=== PATIENT | male | born 1960 | race Asian ===

== ENCOUNTER 2017-04-24 14:52 | Emergency (ER) | payer MEDICARE ==
[~2017-04-24] VITALS: Ht 167.6 cm; Wt 77.0 kg
[~2017-04-24 14:52] MED LIST: ALBU8.5H8 INH; ALPR0.25 PO; ALPR0.254 PO; AMLO2.5T2 PO; AMLO5TAB2 PO; AMOX-291 PO; ARIP5TAB13 PO; ASPI-621 PO; ATOR80TA PO; CARV-39 PO; CARV12.52 PO; CARV3.1212 PO; CEFD300C37 PO; CLON-275 PO; CLOP75TA PO; DICL100G19 TP; DULO30CA2 PO; FAMO20TA37 PO; FLUT16SP INH; FURO20TA3 PO; GABA300C10 PO; GABA800T2 PO; GLIP-33 PO; HYDR-3240 PO; HYDR-3241 PO; INDO25CA PO; ISOS30TA PO; ISOS30TA8 PO; LISI-167 PO; LISI5TAB7 PO; LOVA40TA2 PO; METF10002 PO; METF850T2 PO; METH4TAB6 PO; MORP-52 PO; MORP15TA3 PO; NITR0.4T SL; OXYC10TA6 PO; OXYC5TAB3 PO; PANT20TA3 PO; POTA10CA PO; POTA10TA6 PO; REPA1TAB6 PO; SERT50TA5 PO; TICA90TA PO; ZOLP5TAB6 PO; will bring list
[2017-04-24 14:54] VITALS: BP 155/96
[2017-04-24] MEDS ORDERED: METH5TAB2 PO (15:18)
[2017-04-24] MEDS ORDERED: HYDR-883 PO (15:18)
== END 2017-04-24 16:10 | disposition home or self-care (01) ==
LOC: ED 16:06
DX: R22.2 Localized swelling, mass and lump, trunk (principal); E11.9 Type 2 diabetes mellitus without complications; E78.5 Hyperlipidemia, unspecified; I25.10 Atherosclerotic heart disease of native coronary artery without angina pectoris; I10 Essential (primary) hypertension; I25.2 Old myocardial infarction; Z87.01 Personal history of pneumonia (recurrent); Z95.1 Presence of aortocoronary bypass graft; I50.20 Unspecified systolic (congestive) heart failure
CPT/HCPCS: 76604; 99284

== ENCOUNTER 2017-05-08 08:53 | Emergency (ER) | payer MEDICARE ==
[~2017-05-08] VITALS: Ht 167.6 cm; Wt 75.8 kg
[~2017-05-08 08:53] MED LIST changes: +HYDR-883 PO; +METH5TAB2 PO
[2017-05-08] MEDS ORDERED: SODIUM CHLORIDE FLUSH 10ML SYR IVF ONE (09:30)
[2017-05-08] MEDS ORDERED: ONDANSETRON 2MG/ML, 2ML IVPush ONE ×2 (09:30→10:30)
[2017-05-08] MEDS ORDERED: ASPIRIN 81 MG TABLET CHEW PO ONE (09:30)
[2017-05-08 09:54] LABS: HEMATOCRIT 48.9 % (39.2-51.8); HEMOGLOBIN 16.6 g/dL (13.7-18.0); WHITE BLOOD COUNT 12.8 x10^3/uL (3.4-10)
[2017-05-08] MEDS ORDERED: MORPHINE SULFATE 4 MG/ML, 1ML ONE ×2 (09:55→10:41)
[2017-05-08] MEDS ORDERED: ASPIRIN 81 MG TABLET CHEW ONE (09:55)
[2017-05-08] MEDS ORDERED: ONDANSETRON 2MG/ML, 2ML ONE (09:56)
[2017-05-08] MEDS: MORPHINE SULFATE 4 MG/ML, 1ML IVPush PRN ×2 (09:57→11:09)
[2017-05-08 10:08] LABS: BLOOD UREA NITROGEN 15 mg/dL (7-18)
[2017-05-08 10:13] LABS: IS PT STATUS REG ER OR PRE ER? YES
[2017-05-08] MEDS ORDERED: MAALOX/HYOSCYAMINE/LIDOCAINE 45 ML BTL PO ONE (10:30)
[2017-05-08] MEDS ORDERED: MAALOX/HYOSCYAMINE/LIDOCAINE 45 ML BTL ONE (10:41)
[2017-05-08 11:59] VITALS: BP 125/82
== END 2017-05-08 12:01 | disposition home or self-care (01) ==
LOC: ED 11:45
DX: K29.70 Gastritis, unspecified, without bleeding (principal); R07.89 Other chest pain; I10 Essential (primary) hypertension; E11.9 Type 2 diabetes mellitus without complications; E78.5 Hyperlipidemia, unspecified; I25.10 Atherosclerotic heart disease of native coronary artery without angina pectoris
CPT/HCPCS: 36415; 71010; 76700; 80048; 80076; 82040; 83690; 83880; 84484; 85025; 93005; 96374; 96375; 96376; 99285; J2405

== ENCOUNTER 2017-10-21 17:21 | Emergency (ER) | payer MEDICARE ==
[~2017-10-21] VITALS: Ht 167.6 cm; Wt 72.7 kg
[2017-10-21] MEDS ORDERED: CYCLOBENZAPRINE 10 MG TABLET ONE (17:58)
[2017-10-21] MEDS ORDERED: MORPHINE SULFATE 4 MG/ML, 1ML ONE (17:58)
[2017-10-21] MEDS ORDERED: MORPHINE SULFATE 4 MG/ML, 1ML IVPush ONE (18:00)
[2017-10-21] MEDS ORDERED: SODIUM CHLORIDE FLUSH 10ML SYR IVF ONE (18:00)
[2017-10-21] MEDS ORDERED: CYCLOBENZAPRINE 10 MG TABLET PO ONE (18:00)
[2017-10-21] MEDS ORDERED: SODIUM CHLORIDE 0.9% 1,000ML IV ONE (18:00)
[2017-10-21 18:04] LABS: BASOPHILS # (AUTO) 0.11 x10^3/uL (0-0.1); BASOPHILS % (AUTO) 1 % (0-1); EOSINOPHILS # (AUTO) 0.44 x10^3/uL (0-0.4); EOSINOPHILS % (AUTO) 3 % (1-7); LYMPHOCYTES # (AUTO) 3.32 x10^3/uL (1-3.4); LYMPHOCYTES % (AUTO) 25 % (22-44); MD NO; MEAN CORPUSCULAR HEMOGLOBIN 29.8 pg (27.5-34.5); MEAN CORPUSCULAR HGB CONC 33.7 g/dL (33.2-36.2); MEAN CORPUSCULAR VOLUME 88.5 fL (81-97); MEAN PLATELET VOLUME 9.2 fL (7.4-10.4); MONOCYTES # (AUTO) 0.92 x10^3/uL (0.2-0.8); MONOCYTES % (AUTO) 7 % (2-9); NEUTROPHILS # (AUTO) 8.67 x10^3/uL (1.8-6.8); NEUTROPHILS % (AUTO) 65 % (42-75); PLATELET COUNT 221 x10^3/uL (130-400); RED BLOOD COUNT 5.46 x10^6/uL (4.38-5.82); RED CELL DISTRIBUTION WIDTH 13.2 % (9.4-14.8)
[2017-10-21] MEDS ORDERED: ALBU8.5H8 INH (18:09)
[2017-10-21] MEDS ORDERED: GLIM2TAB2 PO (18:10)
[2017-10-21] MEDS ORDERED: ATOR-2 PO (18:12)
[2017-10-21] MEDS ORDERED: MECL25TA4 PO (18:12)
[2017-10-21] MEDS ORDERED: CARV-39 PO (18:13)
[2017-10-21 18:15] LABS: ALANINE AMINOTRANSFERASE 50 U/L (12-78); ALBUMIN 3.8 g/dL (3.4-5.0); ANION GAP 5 mmol/L (5-15); CALCIUM 8.5 mg/dL (8.5-10.1); CHLORIDE 106 mmol/L (98-107); CREATININE 1.18 mg/dL (0.7-1.3)
[2017-10-21 18:17] LABS: ALKALINE PHOSPHATASE 105 U/L (45-117); BILIRUBIN,TOTAL 0.3 mg/dL (0.2-1.0); TOTAL PROTEIN 7.1 g/dL (6.4-8.2)
[2017-10-21] MEDS ORDERED: HYDR-3307 PO (18:23)
[2017-10-21] MEDS ORDERED: LISI2.5T PO (18:24)
[2017-10-21] MEDS ORDERED: FAMO20TA7 PO (18:27)
[2017-10-21] MEDS ORDERED: HYDR12.53 PO (18:28)
[2017-10-21 18:59] LABS: MICROSCOPIC NOT IND
[2017-10-21 19:21] LABS: CULTURE INDICATED? NO
[2017-10-21 20:02] VITALS: BP 131/90
== END 2017-10-21 20:04 | disposition home or self-care (01) ==
LOC: ED 19:54
DX: S39.012A Strain of muscle, fascia and tendon of lower back, initial encounter (principal); I50.20 Unspecified systolic (congestive) heart failure; E11.9 Type 2 diabetes mellitus without complications; E78.5 Hyperlipidemia, unspecified; I25.2 Old myocardial infarction; I25.810 Atherosclerosis of coronary artery bypass graft(s) without angina pectoris; Z95.1 Presence of aortocoronary bypass graft; X58.XXXA Exposure to other specified factors, initial encounter; Y93.89 Activity, other specified; Y92.89 Other specified places as the place of occurrence of the external cause; Y99.8 Other external cause status; I11.0 Hypertensive heart disease with heart failure
CPT/HCPCS: 36415; 74176; 80053; 81003; 83690; 85025; 96361; 96374; 99285; J7030

== ENCOUNTER → 2018-09-14 | Outpatient (CLI) | payer MEDICARE ==
[~2018-09-14] MED LIST changes: +AMLO-150 PO; -AMLO5TAB2 PO; -ASPI-621 PO; +ASPI81TA45 PO; +ATOR-2 PO; +CARV25TA12 PO; +DIPH25CA61 PO; +DIVA500T4 PO; +FAMO20TA7 PO; +FINA5TAB4 PO; +GABA-827 PO; -GABA800T2 PO; +GABA800T5 PO; +GLIM2TAB2 PO; +GLIP5TAB22 PO; +HYDR-3307 PO; +HYDR-3652 PO; -HYDR-883 PO; +HYDR12.517 PO; -INDO25CA PO; +INDO25CA5 PO; +LISI2.5T PO; +MECL-85 PO; +MECL25TA4 PO; +METF500T PO; +METF850T10 PO; -METF850T2 PO; +OMNIPAQUE 350 MG/ML, 150 ML BOTTLE ONE; +POTA10TA5 PO; +QUET100T PO; +QUET25TA7 PO; +SERT50TA28 PO; -SERT50TA5 PO; +SULF-169 PO; +TAMS-11 PO; +TRIA15CR61 TP
== END | disposition home or self-care (01) ==
LOC: CFH 11:42
PROVIDERS: ATTEND Student in an Organized Health Care Education/Training Program
DX: N41.2 Abscess of prostate (principal); B96.20 Unspecified Escherichia coli [E. coli] as the cause of diseases classified elsewhere; N40.1 Benign prostatic hyperplasia with lower urinary tract symptoms
CPT/HCPCS: 74178; 82565; Q9967

== ENCOUNTER → 2018-09-19 | Outpatient (CLI) | payer MEDICAID, MEDICARE ==
[~2018-09-19] MED LIST changes: -OMNIPAQUE 350 MG/ML, 150 ML BOTTLE ONE
== END | disposition home or self-care (01) ==
LOC: CVU 15:28
PROVIDERS: ATTEND Internal Medicine Cardiovascular Disease
DX: Z01.810 Encounter for preprocedural cardiovascular examination (principal); I34.0 Nonrheumatic mitral (valve) insufficiency; I51.7 Cardiomegaly; I25.10 Atherosclerotic heart disease of native coronary artery without angina pectoris
CPT/HCPCS: 0399T; 93306

== ENCOUNTER → 2018-10-24 | Outpatient (CLI) | payer MEDICARE ==
[~2018-10-24] MED LIST changes: -FLUT16SP INH; +FLUT16SP24 INH; -NITR0.4T SL; +NITR0.4T41 SL
[2018-10-24 16:17] LABS: ALANINE AMINOTRANSFERASE 38 U/L (12-78); ANION GAP 5 mmol/L (5-15); CALCIUM 8.7 mg/dL (8.5-10.1); CHLORIDE 106 mmol/L (98-107)
[2018-10-24 16:20] LABS: ALKALINE PHOSPHATASE 86 U/L (45-117); BILIRUBIN,TOTAL 0.6 mg/dL (0.2-1.0); CREATININE 1.31 mg/dL (0.7-1.3); TOTAL PROTEIN 7.2 g/dL (6.4-8.2)
== END | disposition home or self-care (01) ==
LOC: STAR 14:52
PROVIDERS: ATTEND Orthopaedic Surgery
DX: Z01.818 Encounter for other preprocedural examination (principal); M75.121 Complete rotator cuff tear or rupture of right shoulder, not specified as traumatic; M75.41 Impingement syndrome of right shoulder; M19.011 Primary osteoarthritis, right shoulder
CPT/HCPCS: 36415; 80053; 93005

== ENCOUNTER 2018-10-31 06:08 | Day surgery (SDC) | payer MEDICARE ==
[~2018-10-31] VITALS: Ht 167.6 cm; Wt 73.9 kg
[2018-10-31] MEDS ORDERED: LACTATED RINGERS 1,000 ML IV SCH (07:03)
[2018-10-31] MEDS ORDERED: BUPIVACAINE/PF 0.25% ONE (07:07)
[2018-10-31] MEDS ORDERED: EPINEPHRINE 1 MG/ML, 1ML ONE (07:07)
[2018-10-31 07:09] VITALS: BP 122/82
[2018-10-31] MEDS ORDERED: MIDAZOLAM 1 MG/ML, 2ML ONE (07:38)
[2018-10-31] MEDS ORDERED: FENTANYL PF 100 MCG/2ML ONE (07:38)
[2018-10-31] MEDS ORDERED: BUPIVACAINE/PF-EPI 0.25% 1:200K INFIL ONE (07:52)
[2018-10-31] MEDS ORDERED: PHENYLEPHRINE 10 MG/ML ONE (08:24)
[2018-10-31] MEDS ORDERED: EPHEDRINE 50 MG/ML, 1ML ONE (08:24)
[2018-10-31] MEDS ORDERED: FENTANYL PF 100 MCG/2ML IV PRN (09:30)
[2018-10-31] MEDS ORDERED: ALBUTEROL SULFATE 2.5 MG/3 ML NPPB PRN (09:30)
[2018-10-31] MEDS ORDERED: LABETALOL 5MG/ML, 20ML IV PRN (09:30)
[2018-10-31] MEDS ORDERED: OXYcodone 5 MG/5 ML ORAL.SOL UDC PO PRN (09:30)
[2018-10-31] MEDS ORDERED: PROMETHAZINE 25 MG/ML, 1ML IV PRN (09:30)
[2018-10-31] MEDS ORDERED: KETOROLAC 30 MG/1 ML IV PRN (09:30)
[2018-10-31] MEDS ORDERED: MEPERIDINE/PF 25MG/0.5ML IVPush PRN (09:30)
[2018-10-31] MEDS ORDERED: DIAZEPAM 5 MG/ML, 2ML IVPush PRN (09:30)
[2018-10-31] MEDS ORDERED: hydrALAzine 20 MG/ML, 1ML IV PRN (09:30)
[2018-10-31] MEDS ORDERED: ACETAMINOPHEN 325 MG TABLET PO PRN (09:30)
[2018-10-31] MEDS ORDERED: HYDROmorphone 2 MG/ML, 1ML IVPush PRN (09:30)
[2018-10-31] MEDS ORDERED: DEXAMETHASONE 4 MG/ML, 1ML ONE (10:20)
[2018-10-31] MEDS ORDERED: PROPOFOL 10 MG/ML, 20ML ONE (10:20)
[2018-10-31] MEDS ORDERED: ROCURONIUM 10MG/ML,5ML ONE (10:20)
[2018-10-31] MEDS ORDERED: SUCCINYLCHOLINE 20 MG/ML, 10ML ONE (10:20)
[2018-10-31] MEDS ORDERED: GLYCOPYRROLATE 0.2MG/1ML, 5ML ONE (10:20)
[2018-10-31] MEDS ORDERED: NEOSTIGMINE 1 MG/ML, 10ML ONE (10:20)
[2018-10-31] MEDS ORDERED: ONDANSETRON 2MG/ML, 2ML ONE (10:20)
[2018-10-31] MEDS ORDERED: CEFAZOLIN 1,000 MG ONE (10:20)
== END 2018-10-31 12:17 | disposition home or self-care (01) ==
LOC: OUT 06:08
PROVIDERS: ATTEND Orthopaedic Surgery
DX: S46.011A Strain of muscle(s) and tendon(s) of the rotator cuff of right shoulder, initial encounter (principal); S46.111A Strain of muscle, fascia and tendon of long head of biceps, right arm, initial encounter; S43.431A Superior glenoid labrum lesion of right shoulder, initial encounter; M19.011 Primary osteoarthritis, right shoulder; M75.01 Adhesive capsulitis of right shoulder; M25.811 Other specified joint disorders, right shoulder; I25.10 Atherosclerotic heart disease of native coronary artery without angina pectoris; E11.22 Type 2 diabetes mellitus with diabetic chronic kidney disease; I12.9 Hypertensive chronic kidney disease with stage 1 through stage 4 chronic kidney disease, or unspecified chronic kidney disease; N18.9 Chronic kidney disease, unspecified; I25.2 Old myocardial infarction; E78.5 Hyperlipidemia, unspecified; F41.9 Anxiety disorder, unspecified; F32.9 Major depressive disorder, single episode, unspecified; Z79.84 Long term (current) use of oral hypoglycemic drugs; Z79.82 Long term (current) use of aspirin; Z79.891 Long term (current) use of opiate analgesic; Z79.02 Long term (current) use of antithrombotics/antiplatelets; Z79.899 Other long term (current) drug therapy; Z88.8 Allergy status to other drugs, medicaments and biological substances; Z95.1 Presence of aortocoronary bypass graft; W00.2XXA Other fall from one level to another due to ice and snow, initial encounter; Y93.89 Activity, other specified; Y92.89 Other specified places as the place of occurrence of the external cause; Y99.8 Other external cause status
CPT/HCPCS: 29823; 29824; 29826; 29827; 29828; 64415; 82962; C1713; J0171; J0330; J0690; J1100; J2250; J2370; J2405; J2704; J2710; J3010; J3490; J7120

== ENCOUNTER 2018-11-04 13:58 | Emergency (ER) | payer MEDICARE, MEDICAID ==
[~2018-11-04] VITALS: Ht 167.6 cm; Wt 78.0 kg
[2018-11-04] MEDS ORDERED: MORPHINE SULFATE 4 MG/ML, 1ML IVPush PRN (14:30)
[2018-11-04 14:42] LABS: BASOPHILS # (AUTO) 0.05 x10^3/uL (0-0.1); BASOPHILS % (AUTO) 1 % (0-1); EOSINOPHILS # (AUTO) 0.33 x10^3/uL (0-0.4); EOSINOPHILS % (AUTO) 4 % (1-7); LYMPHOCYTES # (AUTO) 2.81 x10^3/uL (1-3.4); LYMPHOCYTES % (AUTO) 33 % (22-44); MD NO; MEAN CORPUSCULAR HEMOGLOBIN 30.3 pg (27.5-34.5); MEAN CORPUSCULAR HGB CONC 33.4 g/dL (33.2-36.2); MEAN CORPUSCULAR VOLUME 90.6 fL (81-97); MEAN PLATELET VOLUME 8.5 fL (7.4-10.4); MONOCYTES # (AUTO) 0.76 x10^3/uL (0.2-0.8); MONOCYTES % (AUTO) 9 % (2-9); NEUTROPHILS # (AUTO) 4.58 x10^3/uL (1.8-6.8); NEUTROPHILS % (AUTO) 54 % (42-75); PLATELET COUNT 253 x10^3/uL (130-400); RED BLOOD COUNT 4.32 x10^6/uL (4.38-5.82); RED CELL DISTRIBUTION WIDTH 13.1 % (9.4-14.8)
[2018-11-04] MEDS ORDERED: MORPHINE SULFATE 4 MG/ML, 1ML ONE (14:50)
[2018-11-04 14:53] LABS: ALBUMIN 3.5 g/dL (3.4-5.0); ANION GAP 5 mmol/L (5-15); CALCIUM 9.1 mg/dL (8.5-10.1); CHLORIDE 103 mmol/L (98-107); CREATININE 1.02 mg/dL (0.7-1.3)
[2018-11-04 14:57] LABS: TROPONIN I < 0.015 ng/mL (0.000-0.045)
[2018-11-04 16:25] VITALS: BP 116/80
== END 2018-11-04 16:29 | disposition home or self-care (01) ==
LOC: ED 14:30
DX: M25.511 Pain in right shoulder (principal); M79.631 Pain in right forearm; M79.89 Other specified soft tissue disorders; F32.9 Major depressive disorder, single episode, unspecified; F41.9 Anxiety disorder, unspecified; E11.9 Type 2 diabetes mellitus without complications; E78.5 Hyperlipidemia, unspecified; I11.9 Hypertensive heart disease without heart failure; I25.10 Atherosclerotic heart disease of native coronary artery without angina pectoris; I25.2 Old myocardial infarction; F17.200 Nicotine dependence, unspecified, uncomplicated; Z87.01 Personal history of pneumonia (recurrent)
CPT/HCPCS: 36415; 71045; 80048; 82040; 84484; 85025; 93005; 93971; 96374; 99284; J2270

== ENCOUNTER 2018-12-18 19:26 | Emergency (ER) | payer MEDICAID, MEDICARE ==
[~2018-12-18] VITALS: Ht 167.6 cm; Wt 76.9 kg
[~2018-12-18 19:26] MED LIST changes: -HYDR-3307 PO; +HYDR-36 PO; +INDO25CA22 PO; -INDO25CA5 PO; +MORP-29 PO; -MORP15TA3 PO
--- NOTE | 2018-12-18 20:15 | NUR ---
pt to room from lobby
[2018-12-18 21:37] VITALS: BP 105/77
== END 2018-12-18 21:40 | disposition home or self-care (01) ==
LOC: ED 21:15
DX: R51 Headache (principal); G89.29 Other chronic pain; I25.2 Old myocardial infarction; I25.10 Atherosclerotic heart disease of native coronary artery without angina pectoris; I11.9 Hypertensive heart disease without heart failure; F31.9 Bipolar disorder, unspecified; F41.9 Anxiety disorder, unspecified; E11.9 Type 2 diabetes mellitus without complications; E78.5 Hyperlipidemia, unspecified; Z95.1 Presence of aortocoronary bypass graft; F17.200 Nicotine dependence, unspecified, uncomplicated
CPT/HCPCS: 70450; 99284

== ENCOUNTER 2019-03-28 18:48 | Emergency (ER) | payer MEDICARE ==
[~2019-03-28] VITALS: Ht 167.6 cm; Wt 79.6 kg
[~2019-03-28 18:48] MED LIST changes: -GLIM2TAB2 PO; +GLIM2TAB3 PO
[2019-03-28] MEDS ORDERED: HYDROmorphone 1 MG/ML, 1ML INJ IM ONE (20:00)
[2019-03-28] MEDS ORDERED: DIAZEPAM 5 MG TABLET PO ONE (20:00)
[2019-03-28] MEDS ORDERED: DIAZEPAM 5 MG TABLET ONE (20:24)
[2019-03-28] MEDS ORDERED: HYDROmorphone 2 MG/ML, 1ML ONE (20:24)
[2019-03-28 20:31] VITALS: BP 128/78
== END 2019-03-28 20:35 | disposition home or self-care (01) ==
LOC: ED 20:15
DX: S39.012A Strain of muscle, fascia and tendon of lower back, initial encounter (principal); M54.41 Lumbago with sciatica, right side; E11.9 Type 2 diabetes mellitus without complications; E78.5 Hyperlipidemia, unspecified; I10 Essential (primary) hypertension; I25.2 Old myocardial infarction; F31.9 Bipolar disorder, unspecified; I25.10 Atherosclerotic heart disease of native coronary artery without angina pectoris; F41.1 Generalized anxiety disorder; Z87.01 Personal history of pneumonia (recurrent); Z95.1 Presence of aortocoronary bypass graft; X58.XXXA Exposure to other specified factors, initial encounter; Y93.89 Activity, other specified; Y92.89 Other specified places as the place of occurrence of the external cause; Y99.8 Other external cause status
CPT/HCPCS: 72110; 96372; 99283; J1170; J7512

== ENCOUNTER 2019-04-13 10:11 | Emergency (ER) | payer MEDICARE ==
[~2019-04-13] VITALS: Ht 167.6 cm; Wt 76.7 kg
[2019-04-13 10:14] VITALS: BP 93/53
[2019-04-13] MEDS ORDERED: LIDOCAINE-MPF 1%, 5ML ONE ×2 (10:40→13:43)
[2019-04-13] MEDS ORDERED: ONDANSETRON 2MG/ML, 2ML ONE (10:54)
[2019-04-13] MEDS ORDERED: MORPHINE SULFATE 4 MG/ML, 1ML ONE ×2 (10:55→12:09)
[2019-04-13] MEDS ORDERED: SODIUM CHLORIDE 0.9% 1,000ML IVBOLUS ONE (11:00)
[2019-04-13] MEDS ORDERED: SODIUM CHLORIDE FLUSH 10ML SYR IVF ONE (11:00)
[2019-04-13] MEDS ORDERED: ONDANSETRON 2MG/ML, 2ML IVPush ONE (11:00)
[2019-04-13] MEDS ORDERED: LIDOCAINE 1%, 10ML INFIL ONE (11:00)
[2019-04-13 11:38] LABS: BASOPHILS # (AUTO) 0.07 x10^3/uL (0-0.1); BASOPHILS % (AUTO) 1 % (0-1); EOSINOPHILS # (AUTO) 0.24 x10^3/uL (0-0.4); EOSINOPHILS % (AUTO) 2 % (1-7); LYMPHOCYTES # (AUTO) 2.03 x10^3/uL (1-3.4); LYMPHOCYTES % (AUTO) 16 % (22-44); MD NO; MEAN CORPUSCULAR HEMOGLOBIN 30.9 pg (27.5-34.5); MEAN CORPUSCULAR HGB CONC 33.7 g/dL (33.2-36.2); MEAN CORPUSCULAR VOLUME 91.7 fL (81-97); MEAN PLATELET VOLUME 8.7 fL (7.4-10.4); MONOCYTES # (AUTO) 0.69 x10^3/uL (0.2-0.8); MONOCYTES % (AUTO) 5 % (2-9); NEUTROPHILS # (AUTO) 9.59 x10^3/uL (1.8-6.8); NEUTROPHILS % (AUTO) 76 % (42-75); PLATELET COUNT 241 x10^3/uL (130-400); RED BLOOD COUNT 4.78 x10^6/uL (4.38-5.82); RED CELL DISTRIBUTION WIDTH 13.2 % (9.4-14.8)
[2019-04-13] MEDS: MORPHINE SULFATE 4 MG/ML, 1ML IVPush PRN ×2 (11:39→12:45)
[2019-04-13 11:47] LABS: ALANINE AMINOTRANSFERASE 32 U/L (12-78); ALBUMIN 3.7 g/dL (3.4-5.0); ANION GAP 5 mmol/L (5-15); CALCIUM 9.2 mg/dL (8.5-10.1); CHLORIDE 102 mmol/L (98-107); CREATININE 1.43 mg/dL (0.7-1.3)
[2019-04-13 11:49] LABS: ALKALINE PHOSPHATASE 124 U/L (45-117); BILIRUBIN,TOTAL 0.7 mg/dL (0.2-1.0); TOTAL PROTEIN 7.1 g/dL (6.4-8.2)
[2019-04-13] MEDS ORDERED: OMNIPAQUE 350 MG/ML, 100ML BOTTLE ONE (13:22)
[2019-04-13] MEDS ORDERED: HYDROmorphone 1 MG/ML, 1ML VIAL ONE (13:35)
[2019-04-13] MEDS ORDERED: HYDROmorphone 1 MG/ML, 1ML INJ IM ONE (14:00)
[2019-04-13] MEDS ORDERED: HYDROcodone/APAP 5/325 TABLET PO ONE (14:30)
[2019-04-13] MEDS ORDERED: HYDROcodone/APAP 5/325 TABLET ONE (14:31)
== END 2019-04-13 14:56 | disposition home or self-care (01) ==
LOC: ED 11:59
DX: K61.1 Rectal abscess (principal); E11.9 Type 2 diabetes mellitus without complications; I25.10 Atherosclerotic heart disease of native coronary artery without angina pectoris; E78.5 Hyperlipidemia, unspecified; I25.2 Old myocardial infarction; I11.0 Hypertensive heart disease with heart failure; I50.20 Unspecified systolic (congestive) heart failure; Z95.1 Presence of aortocoronary bypass graft
CPT/HCPCS: 36415; 46040; 72193; 80053; 85025; 96374; 96375; 96376; 99284; J1170; J2270; J2405; J7030; Q9967

== ENCOUNTER 2019-04-15 09:22 | Emergency (ER) | payer MEDICARE, MEDICAID ==
[~2019-04-15] VITALS: Ht 167.6 cm; Wt 76.0 kg
--- NOTE | 2019-04-15 10:36 | NUR ---
Patient/Caregiver given discharge instructions and they have confirmed that they understand the instructions. Patient ambulatory with steady gait.
[2019-04-15 10:55] VITALS: BP 117/75
== END 2019-04-15 10:57 ==
LOC: ED 10:51
DX: Z48.01 Encounter for change or removal of surgical wound dressing (principal); I10 Essential (primary) hypertension; E11.9 Type 2 diabetes mellitus without complications; I25.2 Old myocardial infarction; I25.10 Atherosclerotic heart disease of native coronary artery without angina pectoris
CPT/HCPCS: 99281

== ENCOUNTER 2019-12-08 23:34 | Emergency (ER) | payer MEDICARE ==
[~2019-12-08] VITALS: Ht 167.6 cm; Wt 75.0 kg
[~2019-12-08 23:34] MED LIST changes: +CLOB15CR19 TP; -GLIM2TAB3 PO; +GLIM2TAB7 PO; +HYDR-3246 PO; -HYDR-36 PO; +MECL-101 PO; -MECL25TA4 PO
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
[2019-12-09 00:20] LABS: BASOPHILS % (AUTO) 1 % (0-1); EOSINOPHILS # (AUTO) 0.43 x10^3/uL (0-0.4); EOSINOPHILS % (AUTO) 4 % (1-7); LYMPHOCYTES # (AUTO) 3.86 x10^3/uL (1-3.4); LYMPHOCYTES % (AUTO) 36 % (22-44); MD NO; MEAN CORPUSCULAR HEMOGLOBIN 29.8 pg (27.5-34.5); MEAN CORPUSCULAR HGB CONC 32.4 g/dL (33.2-36.2); MEAN CORPUSCULAR VOLUME 91.9 fL (81-97); MEAN PLATELET VOLUME 7.9 fL (7.4-10.4); MONOCYTES # (AUTO) 0.91 x10^3/uL (0.2-0.8); MONOCYTES % (AUTO) 9 % (2-9); NEUTROPHILS # (AUTO) 5.38 x10^3/uL (1.8-6.8); NEUTROPHILS % (AUTO) 50 % (42-75); PLATELET COUNT 233 x10^3/uL (130-400); RED BLOOD COUNT 4.73 x10^6/uL (4.38-5.82); RED CELL DISTRIBUTION WIDTH 13.7 % (9.4-14.8)
[2019-12-09 00:30] LABS: ALBUMIN 3.7 g/dL (3.4-5.0); ANION GAP 5 mmol/L (5-15); CALCIUM 8.8 mg/dL (8.5-10.1); CHLORIDE 109 mmol/L (98-107); CREATININE 1.18 mg/dL (0.7-1.3)
[2019-12-09 00:34] LABS: TROPONIN I < 0.015 ng/mL (0.000-0.045)
[2019-12-09 01:15] VITALS: BP 168/89
--- NOTE | 2019-12-09 01:16 | NUR ---
PT RESTING AND UP FOR RE EVAL. VSS. PT HAS NO NEEDS AT THIS TIME. CALL LIGHT IN REACH
--- NOTE | 2019-12-09 02:05 | NUR ---
Patient given discharge instructions and they have confirmed that they understand the instructions. Patient ambulatory with steady gait.
== END 2019-12-09 02:08 ==
LOC: ED 12-09 02:02
DX: R07.89 Other chest pain (principal); E11.9 Type 2 diabetes mellitus without complications; I25.2 Old myocardial infarction; I10 Essential (primary) hypertension; E78.5 Hyperlipidemia, unspecified; Z95.1 Presence of aortocoronary bypass graft
CPT/HCPCS: 36415; 71045; 80048; 80307; 82040; 84484; 85025; 93005; 99285

== ENCOUNTER 2019-12-20 17:34 | Emergency (ER) | payer MEDICARE ==
[~2019-12-20] VITALS: Ht 167.6 cm; Wt 76.0 kg
[2019-12-20 19:55] LABS: ALANINE AMINOTRANSFERASE 31 U/L (12-78); ALBUMIN 3.3 g/dL (3.4-5.0); ANION GAP 8 mmol/L (5-15); CALCIUM 8.6 mg/dL (8.5-10.1); CHLORIDE 106 mmol/L (98-107); CREATININE 1.38 mg/dL (0.7-1.3)
[2019-12-20 19:57] LABS: ALKALINE PHOSPHATASE 93 U/L (45-117); BILIRUBIN,TOTAL 0.3 mg/dL (0.2-1.0); TOTAL PROTEIN 6.7 g/dL (6.4-8.2)
--- NOTE | 2019-12-20 19:57 | NUR ---
ASSUMED CARE OF PT FROM LOBBY AT THIS TIME.
[2019-12-20 20:03] LABS: BASOPHILS # (AUTO) 0.05 x10^3/uL (0-0.1); BASOPHILS % (AUTO) 1 % (0-1); EOSINOPHILS # (AUTO) 0.45 x10^3/uL (0-0.4); EOSINOPHILS % (AUTO) 4 % (1-7); LYMPHOCYTES # (AUTO) 3.21 x10^3/uL (1-3.4); LYMPHOCYTES % (AUTO) 28 % (22-44); MD NO; MEAN CORPUSCULAR HEMOGLOBIN 30.7 pg (27.5-34.5); MEAN CORPUSCULAR HGB CONC 33.5 g/dL (33.2-36.2); MEAN CORPUSCULAR VOLUME 91.6 fL (81-97); MEAN PLATELET VOLUME 8.6 fL (7.4-10.4); MONOCYTES # (AUTO) 0.82 x10^3/uL (0.2-0.8); MONOCYTES % (AUTO) 7 % (2-9); NEUTROPHILS # (AUTO) 6.84 x10^3/uL (1.8-6.8); NEUTROPHILS % (AUTO) 60 % (42-75); PLATELET COUNT 244 x10^3/uL (130-400); RED BLOOD COUNT 4.39 x10^6/uL (4.38-5.82); RED CELL DISTRIBUTION WIDTH 13.3 % (9.4-14.8)
[2019-12-20] MEDS ORDERED: BENZONATATE 100 MG CAPSULE ONE (20:50)
[2019-12-20] MEDS ORDERED: OXYcodone/APAP 5/325MG TABLET ONE (20:50)
[2019-12-20] MEDS ORDERED: DEXAMETHASONE 4 MG TABLET ONE (20:50)
[2019-12-20] MEDS ORDERED: DEXAMETHASONE 4 MG TABLET PO ONE (20:58)
[2019-12-20] MEDS ORDERED: BENZONATATE 100 MG CAPSULE PO ONE (21:00)
[2019-12-20] MEDS ORDERED: SODIUM CHLORIDE FLUSH 10ML SYR IVF ONE (21:00)
[2019-12-20] MEDS ORDERED: OXYcodone/APAP 5/325MG TABLET PO ONE (21:00)
[2019-12-20] MEDS ORDERED: SODIUM CHLORIDE 0.9% 1,000ML IVBOLUS ONE (21:00)
[2019-12-20] MEDS ORDERED: ACETAMINOPHEN 500 MG TABLET PO ONE (21:00)
[2019-12-20 21:24] LABS: TROPONIN I < 0.015 ng/mL (0.000-0.045)
[2019-12-20 21:44] VITALS: BP 119/71
== END 2019-12-20 21:50 | disposition home or self-care (01) ==
LOC: ED 18:04
DX: J20.8 Acute bronchitis due to other specified organisms (principal); Z20.828 Contact with and (suspected) exposure to other viral communicable diseases; L20.84 Intrinsic (allergic) eczema; R94.31 Abnormal electrocardiogram [ECG] [EKG]; I25.10 Atherosclerotic heart disease of native coronary artery without angina pectoris; E78.5 Hyperlipidemia, unspecified; I11.0 Hypertensive heart disease with heart failure; I50.20 Unspecified systolic (congestive) heart failure
CPT/HCPCS: 36415; 71045; 80053; 84484; 85025; 87081; 87147; 87635; 87880; 93005; 99285

== ENCOUNTER 2020-06-24 11:51 | Emergency (ER) | payer MEDICARE ==
[~2020-06-24] VITALS: Ht 165.1 cm; Wt 85.0 kg
[~2020-06-24 11:51] MED LIST changes: +HYDR-1067 PO; -HYDR-3240 PO; -HYDR-3246 PO; +HYDR-3248 PO; -HYDR-3652 PO; -OXYC5TAB3 PO; +OXYC5TAB98 PO; -PANT20TA3 PO; +PANT20TA4 PO
[2020-06-24] MEDS ORDERED: METHOCARBAMOL 750 MG TABLET ONE (12:22)
[2020-06-24] MEDS ORDERED: HYDROcodone/APAP 5/325 TABLET ONE (12:23)
[2020-06-24] MEDS ORDERED: HYDROcodone/APAP 5/325 TABLET PO ONE (12:30)
[2020-06-24] MEDS ORDERED: KETOROLAC 30 MG/1 ML IM ONE (12:30)
[2020-06-24] MEDS ORDERED: METHOCARBAMOL 750 MG TABLET PO ONE (12:30)
--- NOTE | 2020-06-24 13:55 | NUR ---
Report from DENISHA Mckenzie. [facility].
[2020-06-24 14:01] VITALS: BP 134/56
--- NOTE | 2020-06-24 14:02 | NUR ---
Pt reports "I feel better now, glad everthing is ok". Pt agrees with and understands discharge plan and instructions.
== END 2020-06-24 14:12 | disposition home or self-care (01) ==
LOC: ED 12:33
DX: R51.9 Headache, unspecified (principal); M54.5 Low back pain; M54.2 Cervicalgia; I25.2 Old myocardial infarction; F17.210 Nicotine dependence, cigarettes, uncomplicated
CPT/HCPCS: 72110; 72125; 99284

== ENCOUNTER 2020-12-22 17:32 | Emergency (ER) | payer MEDICARE ==
[~2020-12-22] VITALS: Ht 170.2 cm; Wt 70.2 kg
[~2020-12-22 17:32] MED LIST changes: +HYDR-2214 PO
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
[2020-12-22] MEDS ORDERED: ZIPRASIDONE 20 MG INJ IM ONE ×2 (17:52→18:00)
[2020-12-22] MEDS ORDERED: SODIUM CHLORIDE FLUSH 10ML SYR IVF ONE (18:00)
[2020-12-22] MEDS ORDERED: SODIUM CHLORIDE 0.9% 1,000ML IVBOLUS ONE (18:00)
[2020-12-22 18:12] LABS: BASOPHILS % (AUTO) 1 % (0-1); EOSINOPHILS % (AUTO) 3 % (1-7); LYMPHOCYTES % (AUTO) 30 % (22-44); MEAN CORPUSCULAR HEMOGLOBIN 31.2 pg (27.5-34.5); MEAN CORPUSCULAR HGB CONC 34.1 g/dL (33.2-36.2); MEAN PLATELET VOLUME 8.3 fL (7.4-10.4); MONOCYTES % (AUTO) 11 % (2-9); NEUTROPHILS % (AUTO) 56 % (42-75); PLATELET COUNT 245 x10^3/uL (130-400); RED BLOOD COUNT 4.82 x10^6/uL (4.38-5.82); RED CELL DISTRIBUTION WIDTH 13.8 % (9.4-14.8)
[2020-12-22 18:14] LABS: ALBUMIN 3.6 g/dL (3.4-5.0); ANION GAP 11 mmol/L (5-15); CALCIUM 8.5 mg/dL (8.5-10.1); CHLORIDE 104 mmol/L (98-107)
[2020-12-22 18:20] LABS: ALANINE AMINOTRANSFERASE 32 U/L (12-78); ALKALINE PHOSPHATASE 106 U/L (45-117); BILIRUBIN,TOTAL 0.4 mg/dL (0.2-1.0); CREATININE 0.92 mg/dL (0.7-1.3); SALICYLATE LEVEL 2.1 mg/dL (2.8-20.0); TOTAL PROTEIN 7.4 g/dL (6.4-8.2); TROPONIN I < 0.015 ng/mL (0.000-0.045)
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
--- NOTE | 2020-12-22 18:37 | NUR ---
[facility] [phone] NEIGHBOR. CALLED TO CHECK ON PT. HAS PT'S FAMILY CONTACT NUMBERS
[2020-12-22] MEDS ORDERED: MAGNESIUM SULFATE 1 GM, THIAMINE 100 MG, FOLIC ACID 1 MG, MVI ADULT 10 ML in SODIUM CHL... IV ONE (19:00)
--- NOTE | 2020-12-22 19:01 | NUR ---
REPORT RECIEVED FROM DENISHA WIGGINS. LAB AT BEDSIDE FOR ABG DRAW
--- NOTE | 2020-12-22 19:07 | NUR ---
REPORT OF PT TO DENISHA EASLEY. ALL QUESTIONS ANSWERED. PT VSS AND UPDATED IN EMR. PT WITH SITTER OUTSIDE OF ROOM FOR DIRECT OBERSVATION OF PT.
--- NOTE | 2020-12-22 19:25 | NUR ---
PT SNORING IN BED BUT CONSITANTLY GRABBING IV AND ATTEMPTING TO PULL OUT. PT HAS TO BE CONSTANTLY REDIRECTED. SPOKE WITH ERP, AND PLACED PT ON BILATERAL UPPER EXTREMITIY SOFT RESTRAINTS. CIRCULATION INTACT. PT TO CT AT THIS TIME WELL.
--- NOTE | 2020-12-22 20:36 | NUR ---
PT DOZING INTERMITTENTLY IN GURNEY, RESP EVEN/UNALBORED. ON ALL MONITORS, Q 30 MIN CHECKS WITH RESTRAINTS IN PLACE, PT CONTINUES TO GRAB AT MONITORS AND LINES. SITTER AT BEDSIDE
--- NOTE | 2020-12-22 21:29 | NUR ---
PT SLEEPING MORE, DIFFICULT TO AROUSE AT THIS TIME. REMOVED RESTRAINTS, PT NOT PULLING LINES AT THIS TIME. PT ON ALL MONITORS. SPOKE WITH ERP, WATCHING AND METOBOLIZING AT THIS TIME. IN LINE OF SIGHT OF SITTER
--- NOTE | 2020-12-22 22:30 | NUR ---
PT MORE AWAKE, CRYING AND CALLING FOR HIS MOM. PT PROVIDED BLANKETS AND URINAL PER REQUEST. SITTER AT BEDSIDE.
--- NOTE | 2020-12-22 23:38 | NUR ---
PT SNORING IN GURNEY, RESP EVEN/UNLABORED. IN LINE OF SIGHT OF SITTER. SAFETY MEASURES IN PLACE
--- NOTE | 2020-12-23 01:21 | NUR ---
REPORT GIVEN TO DENISHA LOPEZ
--- NOTE | 2020-12-23 02:35 | NUR ---
PT RESTING ON GURNEY RESP EVEN AND UNLABORED NADN, VSS NO NEEDS AT THIS TIME, SITTER IN SIGHT
--- NOTE | 2020-12-23 03:36 | NUR ---
PT RESTING ON GURNEY RESP EVEN AND UNLABORED NADN, VSS NO NEEDS AT THIS TIME, SITTER IN SIGHT
--- NOTE | 2020-12-23 04:30 | NUR ---
ATTEMPTED TO BREATHALYZE PT, PT UNABLE TO COMPLETE BREATHALYZER AT THIS TIME. ERP UPDATED
--- NOTE | 2020-12-23 05:50 | NUR ---
RPT RESTING ON GURNEY RESP EVEN AND UNLABORED NADN, VSS NO NEEDS AT THIS TIME, SITTER IN SIGHT
--- NOTE | 2020-12-23 06:41 | NUR ---
PT RESTING ON GURNEY RESP EVEN AND UNLABORED NADN, VSS NO NEEDS AT THIS TIME, SITTER IN SIGHT
--- NOTE | 2020-12-23 06:49 | NUR ---
URINE SENT TO LAB AT THIS TIME
--- NOTE | 2020-12-23 07:00 | NUR ---
BEDSIDE REPORT RECEIVED FROM NILES DENNY. PT RESTING ON HOSPITAL LBED, RESPS EVEN AND UNLABORED, ALL SECURITY PRECAUTIONS IN PLACE, SITTER WITHIN VIEW.
[2020-12-23 07:27] LABS: AMPHETAMINE SCREEN, URINE Negative (Negative); BARBITURATE SCREEN, URINE Negative (Negative); BENZODIAZEPINE SCREEN, URINE Negative (Negative); CANNABINOID SCREEN, URINE Negative (Negative); COCAINE SCREEN, URINE Negative (Negative); METHADONE SCREEN, URINE Negative (Negative); OPIATE SCREEN, URINE Negative (Negative)
--- NOTE | 2020-12-23 08:10 | NUR ---
PT A&OX3, ABLE TO VOID, TOLERATING PO FLUIDS. ALL SECURITY PRECAUTIONS IN PLACE, SITTER WITHIN VIEW, PT LOWELLG ON GURNEY, RESPS EVEN AND UNLABORED, REED.
--- NOTE | 2020-12-23 08:33 | NUR ---
EDT TO ATTEMPT BREATHALYZER, PT UNABLE TO DATA ANALYSIS INTERN THROUGH BREATHALYZER PROCESS AT THIS TIME. UPON SUICIDE REASSESSMENT, PT STATES FEELING SUICIDAL BUT NO PLAN. PT A&O, COOPERATIVE, RESPS EVEN AND UNLABORED, NADN.
--- NOTE | 2020-12-23 09:00 | NUR ---
PT PROVIDED WITH MEAL TRAY, A&O, RESPS EVEN AND UNLABORED, VSS, NADN.
--- NOTE | 2020-12-23 10:03 | NUR ---
PT RESTING IN BED, A&OX4, RESPS EVEN AND UNLABORED, VSS, NADN. PT PROVIDED WITH WATER AND WARM BLANKET. ALL SECURITY PRECAUTIONS IN PLACE, GARAGE DOORS DOWN, SITTER WITHIN VIEW.
--- NOTE | 2020-12-23 10:42 | NUR ---
psych DESIREE Conway at bedside for eval/assessment and to discuss POC
--- NOTE | 2020-12-23 11:02 | NUR ---
PT C/O CP DURING EVAL WITH PSYCH SUPERVISOR TUNNEL HEADING BIRDIE, REPEAT EKG DONE, GIVEN TO OSCAR MCLEAN. ALL MONITORS ATTACHED, NSR WITH NO ECTOPY, VSS, NADN.
[2020-12-23 11:14] LABS: TROPONIN I < 0.015 ng/mL (0.000-0.045)
--- NOTE | 2020-12-23 11:46 | NUR ---
rapid covid test collected and walked to lab at this time.
--- NOTE | 2020-12-23 12:52 | NUR ---
PT RESTING IN BED, RESPS EVEN AND UNLABORED, NADN. ALL SECURITY PRECAUTIONS IN PLACE, GARAGE DOORS DOWN, SITTER IN VIEW.
--- NOTE | 2020-12-23 13:20 | NUR ---
fsbg 191. pt a&o, resps even and unlabored, vss, nadn. pt resting in bed, no longer complaining of chest pain.
[2020-12-23 13:23] VITALS: BP 157/83
--- NOTE | 2020-12-23 13:29 | NUR ---
report given to receiving jesus Cartagena on U
--- NOTE | 2020-12-23 13:44 | NUR ---
PT TO [facility] WITH BELONGINGS.
[2020-12-23] MEDS ORDERED: FAMO-79 PO (16:30)
[2020-12-23] MEDS ORDERED: CYCL10TA2 PO (16:30)
[2020-12-23] MEDS ORDERED: DIVA500T17 PO (16:30)
[2020-12-23] MEDS ORDERED: PIOG30TA23 PO (16:30)
[2020-12-23] MEDS ORDERED: QUET100T4 PO (16:30)
[2020-12-24] MEDS ORDERED: DULO60CA56 PO (14:57)
[2020-12-26] MEDS ORDERED: CARV12.52 PO (06:41)
== END 2020-12-23 13:44 ==
LOC: ED 18:02 → UNDOADMOB 21:22 → EDIP 21:22 → ED 12-23 13:44
DX: R45.851 Suicidal ideations (principal); Z20.822 Contact with and (suspected) exposure to COVID-19; R00.0 Tachycardia, unspecified
CPT/HCPCS: 36415; 36600; 70450; 71045; 80053; 80299; 80307; 80320; 82803; 82962; 83880; 84484; 85025; 85379; 87426; 93005; 96361; 96365; 96366; 96372; 99285; J3411; J3475; J3486; J7030; 80329; G0480